=== PATIENT | male | born 1960 | race Caucasian/White ===

== ENCOUNTER 2017-07-10 07:02 | Day surgery (SDC) | payer OTHER ==
[2017-07-10 08:01] LABS: ADD MAN DIFF? NO
[2017-07-10 08:18] LABS: BASOPHIL # 0.1 10^3/ul (0.0-0.1); BASOPHILS % 1.1 % (0.0-2.0); EOSINOPHILS # 0.6 10^3/ul (0.0-0.5); EOSINOPHILS % 9.8 % (0.0-7.0); HEMATOCRIT 45.2 % (42.0-52.0); HEMOGLOBIN 14.7 g/dl (14.0-18.0); LYMPHOCYTES # 1.8 10^3/ul (0.8-2.9); LYMPHOCYTES % 31.9 % (15.0-51.0); MEAN CORPUSCULAR HEMOGLOBIN 29.3 pg (29.0-33.0); MEAN CORPUSCULAR HGB CONC 32.5 g/dl (32.0-37.0); MEAN PLATELET VOLUME 10.2 fl (7.4-10.4); MONOCYTE # 0.7 10^3/ul (0.3-0.9); MONOCYTES % 11.7 % (0.0-11.0); NEUTROPHIL # 2.5 10^3/ul (1.6-7.5); NEUTROPHILS % 44.8 % (39.0-77.0); PLATELET COUNT 245 10^3/UL (140-415); RED BLOOD COUNT 5.02 10^6/ul (4.70-6.10); RED CELL DISTRIBUTION WIDTH 12.5 % (11.5-14.5)
[2017-07-10 08:18] LABS: WHITE BLOOD COUNT 5.6 10^3/ul (4.8-10.8)
[2017-07-10] MEDS ORDERED: MIDAZOLAM 1 MG/ML 2 ML INJ (08:30)
[2017-07-10] MEDS ORDERED: FAMOTIDINE 20 MG TAB PO (08:30)
[2017-07-10] MEDS: SOD CHLORIDE 0.45% 1,000 ML IV (08:30)
[2017-07-10] MEDS ORDERED: DIPHENHYDRAMINE 50 MG CAP PO (08:30)
[2017-07-10] MEDS ORDERED: IODIXANOL LOCM 100 ML BTL (08:30)
[2017-07-10] MEDS ORDERED: VERAPAMIL 5 MG INJ (08:30)
[2017-07-10] MEDS ORDERED: FENTAnyl 50 MCG/ML VIAL (08:30)
[2017-07-10] MEDS ORDERED: LIDOCAINE 1% (MDV) 20 ML INJ (08:30)
[2017-07-10] MEDS ORDERED: HEPARIN 1000 UNITS/ML 10 ML INJ (08:30)
[2017-07-10] MEDS ORDERED: DIAZEPAM 5 MG TAB PO (08:30)
[2017-07-10] MEDS ORDERED: NITROGLYCERIN (IC) 100 MCG/ML INJ (08:31)
[2017-07-10 08:34] LABS: INR 0.95; PROTIME 12.8 Sec (11.9-14.9)
[2017-07-10 08:35] LABS: PARTIAL THROMBOPLASTIN TIME 28.2 Sec (25.0-35.0)
[2017-07-10 08:50] LABS: ANION GAP 16 (8-16); CARBON DIOXIDE 27 mmol/L (21-31); CHLORIDE 104 mmol/L (97-110); GLUCOSE 158 mg/dl (70-220)
[2017-07-10 08:52] LABS: BLOOD UREA NITROGEN 15 mg/dl (7-20); CALCIUM 9.6 mg/dl (8.4-10.2); CREATININE 0.76 mg/dl (0.61-1.24); POTASSIUM 4.9 mmol/L (3.5-5.1); SODIUM 142 mmol/L (135-144)
[2017-07-10 09:14] LABS: CHOLESTEROL 224 mg/dl (100-200)
[2017-07-10 09:14] LABS: CHOL/HDL RATIO 5.3 RATIO; HDL CHOLESTEROL 42 mg/dl (30-78); LDL CHOLESTEROL,CALCULATED 123 mg/dl; TRIGLYCERIDES 293 mg/dl (0-149)
[2017-07-10] MEDS ORDERED: ONDANSETRON 4 MG INJ IV (10:30)
[2017-07-10] MEDS ORDERED: ACETAMINOPHEN 325 MG TAB PO (10:30)
[2017-07-10] MEDS ORDERED: morphine 2 MG INJ IV (10:30)
[2017-07-10] MEDS ORDERED: AL HYDROX/MG HYDROX/SIMETH 30 ML CUP PO (10:30)
[2017-07-10] MEDS: SOD CHLORIDE 0.9% 1,000 ML IV (10:48)
[2017-07-10] MEDS ORDERED: ACCU-CHEK XX (11:30)
== END 2017-07-10 14:35 | disposition home or self-care (01) ==
LOC: SDS 07:02
DX: I25.10 Atherosclerotic heart disease of native coronary artery without angina pectoris (principal); I10 Essential (primary) hypertension; E78.5 Hyperlipidemia, unspecified; E11.9 Type 2 diabetes mellitus without complications; F17.220 Nicotine dependence, chewing tobacco, uncomplicated
CPT/HCPCS: 71045; 80048; 80061; 82962; 85025; 85610; 85730; 93005; 93458